=== PATIENT | female | born 1970 | race Caucasian/White ===

== ENCOUNTER → 2017-06-05 | Outpatient (CLI) | payer BC ==
[~2017-06-05] MED LIST: FLU60SYR30 IM ONLY; FLUT16SP19 NS; GUAI473L81 PO; IBUP200C71 PO; LEVO50TA86 PO; LEVO75TA73 PO; LEVO88TA43 PO; OSE75 PO; SIMV-49 PO
== END ==
LOC: LAB 13:46
PROVIDERS: ATTEND Nurse Practitioner
DX: C44.91 Basal cell carcinoma of skin, unspecified (principal)
CPT/HCPCS: 88305

== ENCOUNTER → 2017-06-13 | Outpatient (CLI) | payer BC ==
--- NOTE | 2017-06-13 15:59 | RADIOLOGY IMAGING REPORT ---
FACILITY: [facility] - [place] PATIENT NAME: KATHY CURRY : [id number] MR: [id number] V: [id number] EXAM DATE: [id number] ORDERING PHYSICIAN: RAHUL LOUIE TECHNOLOGIST: Rosalia Mcdowell PROCEDURE:BILATERAL DIGITAL SCREENING MAMMOGRAM WITH CAD ASSISTED INTERPRETATION & 3D TOMOSYNTHESIS COMPARISON:04/04/16 & priors back to 01/17/09 INDICATIONS:screening FINDINGS: Breast parenchyma is heterogeneously dense. There is a rounded circumscribed 7mm mass in the posterior medial aspect of the right breast which is more discretely evident than on priors particularly in the MLO projection. No significant mammographic change on the left. There are no mammographic findings concerning for malignancy. DIAGNOSTIC CATEGORY 0--INCOMPLETE: NEED ADDITIONAL IMAGING EVALUATION. RECOMMENDATIONS: ULTRASOUND: RIGHT BREAST. IMPRESSION: BIRADS 0: Incomplete, needs additional imaging evaluation. RECOMMENDATION: Right breast Ultrasound with attention to the deep central 3 o'clock area. Dictated by: Cedrick Tripp on 06/13/2017 at 15:29 Transcribed by: AMANDA on 06/13/2017 at 15:33 Approved by: Cedrick Tripp on 06/13/2017 at 15:58 [facility]
== END ==
LOC: MAMO 00:27
PROVIDERS: ATTEND Internal Medicine
DX: Z12.31 Encounter for screening mammogram for malignant neoplasm of breast (principal); R92.8 Other abnormal and inconclusive findings on diagnostic imaging of breast
CPT/HCPCS: 77063; 77067

== ENCOUNTER → 2017-06-20 | Outpatient (CLI) | payer BC ==
--- NOTE | 2017-06-20 16:44 | RADIOLOGY IMAGING REPORT ---
FACILITY: [facility] - [place] PATIENT NAME: KATHY CURRY : [id number] MR: [id number] V: [id number] EXAM DATE: [id number] ORDERING PHYSICIAN: RAHUL LOUIE TECHNOLOGIST: Ada Leblanc PROCEDURE:US RIGHT BREAST COMPLETE COMPARISON:Bilateral screening mammogram 06/13/2017 INDICATIONS:Right breast 7mm mass in the medial breast on screening mammogram. FINDINGS: AREA SCANNED: Right medial breast from 12 o'clock to 4 o'clock. The mammographic finding corresponds to a benign appearing cyst at 1 o'clock posterior depth, 5cm from the nipple, measuring 6 x 6 x 3mm. DIAGNOSTIC CATEGORY 2--BENIGN FINDING. RECOMMENDATIONS: RESUME BILATERAL SCREENING MAMMOGRAPHY AND CLINICAL EVALUATION. Dictated by: Mayela Gaston M.D. on 06/20/2017 at 16:19 Transcribed by: AMANDA on 06/20/2017 at 16:31 Approved by: Mayela Gaston M.D. on 06/20/2017 at 16:43 [facility]
== END ==
LOC: US 02:47
PROVIDERS: ATTEND Internal Medicine
DX: N60.01 Solitary cyst of right breast (principal)

== ENCOUNTER → 2018-06-15 | Outpatient (CLI) | payer BC ==
[~2018-06-15] MED LIST changes: +IBUP-136 PO; -IBUP200C71 PO
--- NOTE | 2018-06-17 17:53 | RADIOLOGY IMAGING REPORT ---
FACILITY: [facility] - [place] PATIENT NAME: KATYH CURRY : [id number] MR: [id number] V: [id number] EXAM DATE: [id number] ORDERING PHYSICIAN: RAHUL LOUIE TECHNOLOGIST: Rosalia Mcdowell PROCEDURE:BILATERAL DIGITAL SCREENING MAMMOGRAM WITH CAD ASSISTED INTERPRETATION & 3D TOMOSYNTHESIS COMPARISON:Prior mammograms 04/04/2016 & 03/01/2015. INDICATIONS:Screening FINDINGS: Moderately dense fibroglandular tissue that could obscure small masses. There are no mass lesions, architectural distortions, or any clustering of microcalcifications. No interval from the prior studies. DIAGNOSTIC CATEGORY 1--NEGATIVE. RECOMMENDATIONS: ROUTINE MAMMOGRAM AND CLINICAL EVALUATION. IMPRESSION: BIRADS 1: Negative. Dictated by: Julian Hairston M.D. on 06/17/2018 at 9:09 Transcribed by: BARBARA on 06/17/2018 at 9:21 Approved by: Julian Hairston M.D. on 06/17/2018 at 17:52 [facility]
== END ==
LOC: MAMO 02:28
PROVIDERS: ATTEND Internal Medicine
DX: Z12.31 Encounter for screening mammogram for malignant neoplasm of breast (principal)
CPT/HCPCS: 77063; 77067